=== PATIENT | male | born 1970 | race Caucasian/White ===

== ENCOUNTER 2019-10-29 11:38 | Emergency (ER) | payer OTHER ==
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
[2019-10-29] MEDS ORDERED: KETOROLAC TROMETHAMINE 60 MG/2 ML SDV IM ONE (11:47)
[2019-10-29] MEDS ORDERED: DEXAMETHASONE SOD PHOS INJ 10 MG/1 ML VIAL IM ONE (11:47)
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
[2019-10-29 13:12] VITALS: BP 113/73
== END 2019-10-29 13:25 | disposition home or self-care (01) ==
LOC: ER 11:38
DX: S70.01XA Contusion of right hip, initial encounter (principal); M54.9 Dorsalgia, unspecified; M25.551 Pain in right hip; W19.XXXA Unspecified fall, initial encounter; Z87.891 Personal history of nicotine dependence
CPT/HCPCS: 99283; 96372; 73502; 72110; J1885; J1100